=== PATIENT | female | born 1960 | race Caucasian/White ===

== ENCOUNTER 2019-08-13 10:49 | Emergency (ER) | payer OTHER ==
[~2019-08-13] VITALS: Ht 154.9 cm; Wt 68.0 kg
[2019-08-13] MEDS ORDERED: VIBRAMYCIN100 MG PO (13:34)
== END 2019-08-13 13:36 | disposition home or self-care (01) ==
LOC: ED 10:49
DX: J40 Bronchitis, not specified as acute or chronic (principal); Z88.0 Allergy status to penicillin; Z88.2 Allergy status to sulfonamides; Z88.1 Allergy status to other antibiotic agents